=== PATIENT | female | born 1995 | race Caucasian/White ===

== ENCOUNTER 2021-06-30 07:10 | Inpatient (IN) | payer BC ==
[2021-06-30 08:30] LABS: CORONAVIRUS COVID-19 NAA NEGATIVE (NEGATIVE)
[2021-06-30] MEDS ORDERED: Sodium Chloride 0.9% 10 ML Syringe FLUSH PRN (08:35)
[2021-06-30] MEDS: Misoprostol 50 MCG (1/2 of 100 MCG) Tab VAG ONE ×2 (09:12→09:15)
[2021-06-30] MEDS ORDERED: Misoprostol 50 MCG (1/2 of 100 MCG) Tab PO ONE (09:13)
[2021-06-30] MEDS ORDERED: Misoprostol 25 MCG (1/4 of 100 MCG) Tab PO ONE (22:39)
[2021-06-30] MEDS ORDERED: Misoprostol 25 MCG (1/4 of 100 MCG) Tab ONE (22:42)
[2021-06-30] MEDS: hydrOXYzine HCl 25 MG Tab PO SCH (22:46)
[2021-07-01] MEDS ORDERED: Lactated Ringers 1,000 ML IV ONE (08:16)
[2021-07-01] MEDS ORDERED: Sodium Chloride 0.9% 10 ML Syringe FLUSH PRN (08:25)
[2021-07-01] MEDS ORDERED: ceFAZolin 2 GM in Premix Bag 1 BAG IV ONE (09:00)
[2021-07-01] MEDS ORDERED: Oxytocin 10 Units/1 ML SDV ONE ×2 (09:44→10:18)
[2021-07-01] MEDS ORDERED: ePHEDrine 50 MG/ML SDV ONE (09:44)
[2021-07-01] MEDS ORDERED: Ondansetron 4 MG/2 ML SDV ONE (09:44)
[2021-07-01] MEDS ORDERED: Sodium Chloride 0.9% 20 ML ONE (09:44)
[2021-07-01] MEDS ORDERED: Phenylephrine 1% 10 MG/ML SDV ONE (09:44)
[2021-07-01] MEDS ORDERED: Lactated Ringers 1,000 ML ONE (10:17)
[2021-07-01] MEDS ORDERED: Naloxone 0.4 MG/ML SDV IVPUSH PRN ×2 (11:21→11:23)
[2021-07-01] MEDS ORDERED: diphenhydrAMINE 50 MG/ML SDV IVPUSH PRN ×2 (11:21→11:23)
[2021-07-01] MEDS ORDERED: ePHEDrine 50 MG/ML SDV IVPUSH PRN ×2 (11:21→11:23)
[2021-07-01] MEDS ORDERED: Acetaminophen 325 MG Tab PO PRN (11:25)
[2021-07-01] MEDS ORDERED: diphenhydrAMINE 50 MG/ML SDV IV PRN (11:25)
[2021-07-01] MEDS ORDERED: Ondansetron 4 MG Tab.DIS PO PRN (11:25)
[2021-07-01] MEDS ORDERED: Docusate Sodium 100 MG Cap PO PRN (11:25)
[2021-07-01] MEDS ORDERED: oxyCODONE 5 MG Tab PO PRN (11:25)
[2021-07-01] MEDS: Ketorolac 30 MG/ML SDV IVPUSH SCH ×2 (12:04→20:07)
[2021-07-01] MEDS ORDERED: Lanolin 100% Cream 40 GM Tube TOP PRN (14:12)
[2021-07-01] MEDS ORDERED: Witch Hazel Medicated Pads 100/Jar TOP PRN (14:13)
[2021-07-01] MEDS: hydrOXYzine HCl 25 MG Tab PO SCH (21:18)
[2021-07-02] MEDS: Ketorolac 30 MG/ML SDV IVPUSH SCH ×3 (04:07→20:07)
[2021-07-02] MEDS: hydrOXYzine HCl 25 MG Tab PO SCH (20:32)
== END 2021-07-03 13:43 | disposition home or self-care (01) | DRG 540 ==
LOC: JP.OBCHECK 07:10 → JP.OB 07:11 → UNDOADMOB 07:11 → JP.OBCHECK 07:11 → JP.OB 07:14 → INTOOBSV 08:25 → OBSVTOIN 08:25 → JP.OB 07-01 10:51 → JP.MS 07-01 12:13 → UNDODISIN 07-03 13:43
PROVIDERS: ADMIT Obstetrics & Gynecology; ATTEND Obstetrics & Gynecology
PROC: 10D00Z1 Extraction of Products of Conception, Low, Open Approach (ICD-10-PCS; principal; 2021-06-30)
DX: O69.81X0 Labor and delivery complicated by cord around neck, without compression, not applicable or unspecified (principal); O36.1930 Maternal care for other isoimmunization, third trimester, not applicable or unspecified; Z20.822 Contact with and (suspected) exposure to COVID-19; Z37.0 Single live birth; Z3A.39 39 weeks gestation of pregnancy; Z79.82 Long term (current) use of aspirin
CPT/HCPCS: 0241U; 36415; 51702; 80305-QW; 81001; 85025; 86850; 86870; 86900; 86901; 86902; 86920; 86922; 88307; A9270-GY; J0690; J1885; J2370; J2405; J2590; J3490; J7120